=== PATIENT | male | born 1950 ===

== ENCOUNTER 2021-04-26 14:31 | Emergency (ER) | payer MEDICARE, OTHER, SELFPAY ==
[2021-04-26 14:42] VITALS: BP 160/79; PULSE 91; RESP 17; TEMP 36.8; O2SAT 97
--- NOTE | 2021-04-26 15:00 | DI.CT_ITS ---
Exam(s) CT HEAD CERVICAL SPINE WO EXAM: CT HEAD CERVICAL SPINE WO CLINICAL HISTORY: pain cervical and LYNN. TECHNIQUE: Imaging Protocol: Axial computed tomography images with coronal and sagittal reformatted images were created and reviewed COMPARISON: No exams were available for comparison FINDINGS: BRAIN: There are no skull fractures nor fluid in the visualized paranasal sinuses. There is no evidence of intracranial hemorrhage, mass effect, or shift of midline structures. There are no extra-axial fluid collections. The ventricles are not enlarged or shifted and there is no blo od within the ventricular system nor within the basal cisterns. CERVICAL SPINE: There is no evidence of fracture nor listhesis. No significant prevertebral soft tissue swelling. Mild facet arthropathy changes. There is no significant facet joint malalignment. No significant osseous lesions evident. IMPRESSION: No acute intracranial findings on this noninfused CT scan of the brain. No evidence of cervical spine fracture, malalignment, nor acute compromise of the cervical spinal can al. RADIATION DOSE DELIVERED: 1,772.13mGy.cm Total DLP DATA REPOSITORY: All CT scans at this facility are submitted to the National Radiology Data Registry (NRDR) Dose Index Registry (DIR) with the [employer] ([employer]). RADIATION OPTIMIZATION: All CT scans at this facility use at least one of these dose optimization te chniques: automated exposure control; mA and/or kV adjustment per patient size (includes targeted exa ms where dose is matched to clinical indication); or iterative reconstruction.
--- NOTE | 2021-04-26 15:00 | RT.EKG_ITS ---
APPROVED REPORT Exam: Resting ECG Reason for Exam: LOC, confusion Patient Location: E HR:87 bpm ECG Measurements Heart Rate 87 AXIS IA 200 P 37 QRSd 100 QRS -13 QT 364 T 67 QTc 436 Conclusion Sinus rhythm...normal P axis, V-rate 60- 99 Paired ventricular premature complexes...sequence of 2 V complexes Low voltage, precordial leads...precordial leads <1.0mV PVCs. No STEMI. I have reviewed and interpreted ECG and agree with software generated interpretation.
[2021-04-26 15:33] LABS: Abs Immature Grans 0.03 10^3/uL (0.0-0.06); Absolute Basophil Count 0.04 10^3/uL (0.0-0.2); Absolute Eosinophil Count 0.11 10^3/uL (0.0-0.7); Absolute Monocyte Count 0.67 10^3/uL (0.1-0.8); Absolute Neutrophil Count 5.78 10^3/uL (1.2-6.7); Basophils % 0.5; Eosinophils % 1.3; Immature Grans % 0.4; Lymphocytes % 21.4; MCH 29.9 pg (27.0-33.0); MCHC 33.3 % (32.0-36.0); MCV 89.6 fL (80-95); MPV 11.6 fL (8.0-11.0); Monocytes % 7.9; Neutrophils % 68.5; Nucleated RBC 0 %; Platelet Count 170 10^3/uL (130-400); RBC 4.02 10^6/uL (4.36-5.78); RDW 12.8 % (11.8-14.1); RDW-SD 41.6 fL; WBC 8.43 10^3/uL (4.4-10.8)
--- NOTE | 2021-04-26 15:52 | ED.GENADUL_ITS ---
Discharge Plan Disposition Patient Disposition: HOME Condition: Good Discharge Details Clinical Impression: Head injury, Neck pain Primary Care Provider: Deborah,Local ED Provider: Aaron Dunn Home Meds and New Rx's Prescriptions: Continued metformin 500 mg Tablet 1,000 mg PO BID RF: 0 aspirin 81 mg Tablet 81 mg PO DAILY RF: 0 lisinopril 40 mg Tablet 40 mg PO DAILY RF: 0 loratadine [Claritin] 10 mg Tablet 10 mg PO DAILY RF: 0 glipizide 5 mg Tablet 5 mg PO DAILY RF: 0 ergocalciferol (vitamin D2) 25,000 unit Capsule 50,000 unit PO QWEEK RF: 0 rosuvastatin 5 mg Tablet 5 mg PO DAILY RF: 0 [id number]-lap-epa-fish 200 mcg-1,000 unit-25 mg Tablet,Chewable 1,000 tab PO DAILY RF: 0 Discharge Instructions Instructions: Head Injury (ED), Neck Pain (ED) Discharge Data Discharge Date/Time-TO BE ENTERED AT DEPARTURE: 04/26/21 17:55 Medical Decision Making <REYES Washington - Last Filed: 04/28/21 09:43> Patient is alert, oriented, of decisional capacity He has repetitive speech per but I have not experienced this during my exam Patient is not anticoagulated but does take baby aspirin Given his loss of consciousness with head injury and repetitive speech, and checking CT head and cervical spine, EKG, and diagnostic labs Patient will be signed out to my colleague, Aaron Dunn, pending head CT and likely discharge home in the care of his His laceration on his ear does not warrant any additional intervention Patient symptoms are likely secondary to a concussion, GCS 15, and CT head and cervical spine diagnostic labs are negative for acute abnormality, likely stable for discharge home Signed out to Aaron Dunn PA-C pending CT scan head and cervical spine and reassessment Medical Records Medical records reviewed: Yes I reviewed the patient's medical records. <REYES Veras - Last Filed: 04/26/21 17:20> This is a 71-year-old male who I assumed care of from my colleague REYES Witt, please see her initial HPI and examination. In short, patient had mechanical fall, struck his head, does not recall the events surrounding the fall, and afte r the fall had repetitive questioning. Neurologically intact, routine laboratory values and CT obtained, awaiting CMP and CT imaging report from radiology. CT imaging of head and neck are read as negative per radiology. Laboratory values do not reveal any obvious emergent process. Discussed CT findings and laboratory values with patient and family. Per family, he is back to baseline, no longer with any memory deficit. Patient did report a mild global headache, 650 p.o. Tylenol given, reports that Tylenol is helping with his discomfort. He did tolerate the p.o. medication and water without difficulty. He denies any visual changes, numbness, tingling, weakness, chest pain, shortness of breath abdominal pain, nausea, vomiting, incontinence. He remains neurologically intact. Patient has no additional questions or concerns at this time. We discussed the importance of return to the ER for new or worsening symptoms, otherwise contacting his primary care provider tomorrow for prompt outpatient follow-up. If he does have continued symptoms an outpatient neurology referral likely indicated. Standard discharge and return precautions given This documentation was generated using [employer] dictation system, please disregard any oddities of phrase or misspellings. Imaging Data Radiologic Study: Attestation: I personally reviewed and interpreted this imaging study as follows: Imaging: CT Scan Radiologist's impression: PROCEDURE INFORMATION: Exam: CT Head Without Contrast Exam date and time: 04/26/2021 3:14 PM Age: 71 years old Clinical indication: Injury or trauma; Fall; Blunt trauma (contusions or darrion fermín) TECHNIQUE: Imaging protocol: Computed tomography of the head without contrast. COMPARISON: No relevant prior studies available. FINDINGS: Brain: Age-related atrophy and chronic white matter ischemic changes, with no evidence of an acute intracranial abnormality. No hemorrhage, mass effect or midline shift. Cerebral ventricles: The ventricular system demonstrates mild diffuse compensatory enlargement. Paranasal sinuses: Visualized sinuses are unremarkable. No fluid levels. Mastoid air cells: Visualized mastoid air cells are well aerated. Vasculature: The vasculature demonstrates diffuse mild atherosclerotic calcification. Bones/joints: No acute fracture. Soft tissues: No acute changes IMPRESSION: 1. Age-related atrophy and chronic white matter ischemic changes, with no evidence of an acute intracranial abnormality. 2. No hemorrhage, mass effect or midline shift. PROCEDURE INFORMATION: Exam: CT Cervical Spine Without Contrast Exam date and time: 04/26/2021 3:14 PM AUSTEN EVANS Preliminary Radiology Report SCRUMMASTER (QA) DISCREPANCY? If there is a discrepancy between the preliminary and final interpretation, please notify [facility] via [email or web address]. If you do not have access to our QA portal, call our QA team at [phone] CONFIDENTIALITY STATEMENT This report is intended only for the use of the referring physician, and only in accordance with law, If you received this in error, call [phone] Page 2 of 2 Age: 71 years old Clinical indication: Injury or trauma; Fall; Blunt trauma (contusions or hematomas) TECHNIQUE: Imaging protocol: Computed tomography images of the cervical spine without contrast. COMPARISON: No relevant prior studies available. FINDINGS: Bones/joints: There is no evidence of acute fracture. The facet joints demonstrate mild degenerative hypertrophy and sclerosis. Discs/Spinal canal/Neural foramina: The cervical spine demonstrates mild degenerative changes at multiple levels. Lungs: Lung apices are normal. Vasculature: The vasculature demonstrates diffuse mild atherosclerotic calcification. Soft tissues: There are no soft tissue masses or fluid collections. IMPRESSION: 1. The cervical spine demonstrates mild degenerative changes at multiple levels. 2. No evidence of acute fracture. Thank you for allowing us to participate in the care of your patien Lab Data Lab results reviewed: Yes I reviewed the patient's lab results. Labs: Laboratory Tests Range/Units 04/26/21 04/26/21 04/26/21 15:26 15:26 16:07 WBC (4.4-10.8) 10^3/uL 8.43 RBC (4.36-5.78) 10^6/uL 4.02 L Hgb (13.5-17.5) g/dL 12.0 L Hct (40.0-50.0) % 36.0 L MCV (80-95) fL 89.6 MCH (27.0-33.0) pg 29.9 MCHC (32.0-36.0) % 33.3 RDW (11.8-14.1) % 12.8 Plt Count (130-400) 10^3/uL 170 MPV (8.0-11.0) fL 11.6 H Immature Gran % 0.4 Neutrophils % 68.5 Lymphocytes % 21.4 Monocytes % 7.9 Eosinophils % 1.3 Basophils % 0.5 Nucleated RBC % % 0 Absolute Neutrophils (1.2-6.7) 10^3/uL 5.78 Absolute Lymphocytes (1.2-3.4) 10^3/uL 1.80 Absolute Monocytes (0.1-0.8) 10^3/uL 0.67 Absolute Eosinophils (0.0-0.7) 10^3/uL 0.11 Absolute Basophils (0.0-0.2) 10^3/uL 0.04 Sodium (136-145) mmol/L 141 Potassium (3.5-5.1) mmol/L 4.3 Chloride (98-107) mmol/L 105 Carbon Dioxide (21.0-32.0) mmol/L 25.2 Anion Gap (3-11) mmol/L 10.8 BUN (7-18) mg/dL 24 H Creatinine (0.70-1.30) mg/dL 1.5 H Estimated GFR/1.73 m2 (mL/min/1.73m2) 46.00 Glucose (74-106) mg/dL 238 H Calcium (8.5-10.1) mg/dL 9.2 Total Bilirubin (0.2-1.0) mg/dL 0.4 AST (15-37) U/L 29 ALT (16-63) U/L 51 Alkaline Phosphatase (46-116) U/L 60 Total Protein (6.4-8.2) g/dL 6.9 Albumin (3.4-5.0) g/dL 3.5 Urine Color (Yellow) Yellow Urine Clarity (Clear) Clear Urine pH (5-8) 5.5 Ur Specific [place] (1.005-1.025) 1.020 Urine Protein (Negative) mg/dL Negative Urine Ketones (Negative) mg/dL Negative Urine Blood (Negative) Negative Urine Nitrite (Negative) Negative Urine Bilirubin (Negative) Negative Urine Urobilinogen (Up TO 0.2) EU/dL 0.2 Ur Leukocyte Esterase (Negative) Negative Urine Glucose (Negative) mg/dL Negative ECG Data Attestation: I personally reviewed and interpreted this ECG (s) as follows: Interpretation: Please see official report by Dr. Bui. Sinus rhythm, ventricular of 87. No STEMI. HPI <REYES Washington - Last Filed: 04/28/21 09:43> General Mode of arrival: ambulatory . Date/Time Provider Initiated Documentation: 04/26/21 14:43 . Limitations to Documentation: no limitations . Information obtained by: patient . HPI Narrative: this 71-year-old gentleman with history of diabetes, hypertension, hyperlipidemia presents with report of head injury and some repetitive speech. Patient reportedly fell down 1 stair, hitting his head. He did not lose consciousness per his . She states that he missed the last step. Patient has amnesia regarding the event reportedly. is actually able to witness the event. Patient denies any dizziness but does feel slightly lightheaded and nauseous. He is not anticoagulated but does take aspirin. He also has some mild neck discomfort. He denies chest pain, shortness of breath, palpitations. They were able to ambulate after the event.. He denies any abdominal pain. He was completely asymptomatic before the gloria nt. He was taking the dog down the steps for a walk reportedly. His witnessed the event. Related Data Home Medications Medication Instructions Recorded Confirmed aspirin 81 mg PO DAILY 04/26/21 04/26/21 ergocalciferol (vitamin D2) 50,000 unit PO QWEEK 04/26/21 04/26/21 glipizide 5 mg PO DAILY 04/26/21 04/26/21 lisinopril 40 mg PO DAILY 04/26/21 04/26/21 loratadine [Claritin] 10 mg PO DAILY 04/26/21 04/26/21 metformin 1,000 mg PO BID 04/26/21 04/26/21 [id number]-epa-[id number] 1,000 tab PO DAILY 04/26/21 04/26/21 rosuvastatin 5 mg PO DAILY 04/26/21 04/26/21 Allergies Allergy/AdvReac Type Severity Reaction Status Date / Time apple Allergy Severe Swelling/Ed Unverified 04/26/21 14:49 saroj Penicillins Allergy Severe Hives Unverified 04/26/21 14:49 General Stated Complaint: HeadInjury RONDA: 3 Review of Systems <REYES Washington - Last Filed: 04/28/21 09:43> All systems reviewed & are unremarkable except as noted in HPI and below PFSH <REYES Washington Last Filed: 04/28/21 09:43> Social History Smoking/Tobacco Use Status: Former Tobacco Use Smoking risk assessment performed?: Yes Substance use type: does not use Do you feel safe at home: Yes Do you feel safe in your relationship?: Yes Exam <REYES Washington Last Filed: 04/28/21 09:43> Const General: cooperative and no acute distress HENMT Head: normal to inspection Outer ear/TM images: 1. Abrasion and hematoma noted, no hemotympanum Mouth: oral mucosae normal Eyes Pupils: PERRL Neck Other: Tenderness with palpation paraspinal muscles of the c4-5 Chest Chest: normal inspection of the chest Other: No crepitus Resp Effort & Inspection: normal respiratory effort Auscultation: clear to auscultation bilaterally Cardio Rate: regular rate Rhythm: regular rhythm GI Inspection: normal to inspection Other: No visible sign of injury, no abdominal bruit or pulsatile mass, nontender Skin General skin exam: no rashes or lesions noted Neuro General: patient alert and patient oriented x3 Cranial Nerves: CN's II-XI intact bilaterally Speech: speech normal Gait: normal gait Sensory Exam: no sensory deficits noted Extrem Other: Nontender extremity exam, no visible sign of trauma Course <REYES Washington Last Filed: 04/28/21 09:43> Vital Signs Vital signs: Vital Signs Temperature 36.8 C 04/26/21 14:42 Pulse 91 H 04/26/21 14:42 Respiratory Rate 17 04/26/21 14:42 Blood Pressure 160/79 H 04/26/21 14:42 Pulse Oximetry 97 04/26/21 14:42 Temperature 36.8 C 04/26/21 14:42 Temperature Source Temporal Artery Scan 04/26/21 14:42 Pulse 91 H 04/26/21 14:42 Respiratory Rate 17 04/26/21 14:42 Respiratory Effort Non-Labored 04/26/21 14:46 Blood Pressure 160/79 H 04/26/21 14:42 Blood Pressure Position Sitting 04/26/21 14:42 Pulse Oximetry 97 04/26/21 14:42 Oxygen Delivery Method Room Air 04/26/21 14:42 Oxygen Flow Rate 0 04/26/21 14:42 Pain Level 5 04/26/21 14:42 Sign Out <REYES Washington - Last Filed: 04/28/21 09:43> Sign Out Data: Sign Out Comment: pending ct cspine and head, ambulatory trial, reassessment Last updated by Joanne Witt PA at 04/26/21 16:19
[2021-04-26 15:53] LABS: ALT 51 U/L (16-63); AST 29 U/L (15-37); Albumin 3.5 g/dL (3.4-5.0); Alkaline Phosphatase 60 U/L (46-116); Anion Gap 10.8 mmol/L (3-11); BUN 24 mg/dL (7-18); Bilirubin, Total 0.4 mg/dL (0.2-1.0); CO2 25.2 mmol/L (21.0-32.0); CREATININE 1.5 mg/dL (0.70-1.30); Calcium 9.2 mg/dL (8.5-10.1); Chloride 105 mmol/L (98-107); Glucose 238 mg/dL (74-106); Potassium 4.3 mmol/L (3.5-5.1); Sodium 141 mmol/L (136-145); Total Protein 6.9 g/dL (6.4-8.2)
[2021-04-26 16:12] LABS: Bilirubin Negative (Negative); Blood Negative (Negative); Clarity Clear (Clear); Glucose Negative (Negative); Ketones Negative (Negative); Leukocyte Esterase Negative (Negative); Nitrite Negative (Negative); Urobilinogen 0.2 EU/dL (Up TO 0.2); pH 5.5 (5-8)
[2021-04-26] MEDS: Normal Saline 1,000 ML 500 ML IV (16:32)
[2021-04-26] MEDS: Ondansetron 4 MG/2 ML VIAL IVP (16:33)
--- NOTE | 2021-04-26 16:41 | DI.VRAD_ITS ---
PROCEDURE INFORMATION: Exam: CT Head Without Contrast Exam date and time: 04/26/2021 3:14 PM Age: 71 years old Clinical indication: Injury or trauma; Fall; Blunt trauma (contusions or hematomas) TECHNIQUE: Imaging protocol: Computed tomography of the head without contrast. COMPARISON: No relevant prior studies available. FINDINGS: Brain: Age-related atrophy and chronic white matter ischemic changes, with no evidence of an acute intracranial abnormality. No hemorrhage, mass effect or midline shift. Cerebral ventricles: The ventricular system demonstrates mild diffuse compensatory enlargement. Paranasal sinuses: Visualized sinuses are unremarkable. No fluid levels. Mastoid air cells: Visualized mastoid air cells are well aerated. Vasculature: The vasculature demonstrates diffuse mild atherosclerotic calcification. Bones/joints: No acute fracture. Soft tissues: No acute changes IMPRESSION: 1. Age-related atrophy and chronic white matter ischemic changes, with no evidence of an acute intracranial abnormality. 2. No hemorrhage, mass effect or midline shift. PROCEDURE INFORMATION: Exam: CT Cervical Spine Without Contrast Exam date and time: 04/26/2021 3:14 PM Age: 71 years old Clinical indication: Injury or trauma; Fall; Blunt trauma (contusions or hematomas) TECHNIQUE: Imaging protocol: Computed tomography images of the cervical spine without contrast. COMPARISON: No relevant prior studies available. FINDINGS: Bones/joints: There is no evidence of acute fracture. The facet joints demonstrate mild degenerative hypertrophy and sclerosis. Discs/Spinal canal/Neural foramina: The cervical spine demonstrates mild degenerative changes at multiple levels. Lungs: Lung apices are normal. Vasculature: The vasculature demonstrates diffuse mild atherosclerotic calcification. Soft tissues: There are no soft tissue masses or fluid collections. IMPRESSION: 1. The cervical spine demonstrates mild degenerative changes at multiple levels. 2. No evidence of acute fracture. Dictated and Authenticated by: Anmol Womack MD. Ordering:CONTRERAS Rubio MD
[2021-04-26] MEDS: Acetaminophen 325 MG TAB 650 MG PO (16:45)
[2021-04-26 17:41] VITALS: BP 115/65; PULSE 85; RESP 17; TEMP 36.7; O2SAT 97
== END 2021-04-26 17:55 | disposition home or self-care (01) ==
PROVIDERS: Physician Assistant; Emergency Provider Physician Assistant
DX: S09.8XXA Other specified injuries of head, initial encounter (principal); S01.311A Laceration without foreign body of right ear, initial encounter; W10.8XXA Fall (on) (from) other stairs and steps, initial encounter; R47.89 Other speech disturbances; R51.9 Headache, unspecified; M54.2 Cervicalgia
CPT/HCPCS: 80053; 93005; 96361; 96374; 99284; 70450; 72125; 81003; 85025; 93010; J2405